=== PATIENT | female | born 1990 | race Two or more races ===

== ENCOUNTER 2021-05-17 07:40 | Emergency (ER) | payer MEDICAID ==
[~2021-05-17] VITALS: Ht 162.6 cm; Wt 100.0 kg
[2021-05-17 07:49] VITALS: BP 119/76
== END 2021-05-17 08:14 | disposition home or self-care (01) ==
LOC: ER 07:40
DX: U07.1 COVID-19 (principal); J06.9 Acute upper respiratory infection, unspecified
CPT/HCPCS: 87635; 99283; C9803